=== PATIENT | male | born 1965 | race Caucasian/White ===

== ENCOUNTER 2018-09-01 10:23 | Emergency (ER) | payer OTHER ==
[~2018-09-01] VITALS: Ht 177.8 cm; Wt 86.8 kg
[2018-09-01 11:20] LABS: BASOPHILS # (AUTO) 0.02 x10^3/uL (0-0.1); BASOPHILS % (AUTO) 0 % (0-1); EOSINOPHILS # (AUTO) 0.23 x10^3/uL (0-0.4); EOSINOPHILS % (AUTO) 5 % (1-7); LYMPHOCYTES # (AUTO) 1.41 x10^3/uL (1-3.4); LYMPHOCYTES % (AUTO) 33 % (22-44); MD NO; MEAN CORPUSCULAR HEMOGLOBIN 32.5 pg (27.5-34.5); MEAN CORPUSCULAR VOLUME 93.1 fL (81-97); MEAN PLATELET VOLUME 7.8 fL (7.4-10.4); MONOCYTES # (AUTO) 0.29 x10^3/uL (0.2-0.8); MONOCYTES % (AUTO) 7 % (2-9); NEUTROPHILS # (AUTO) 2.35 x10^3/uL (1.8-6.8); NEUTROPHILS % (AUTO) 55 % (42-75); PLATELET COUNT 202 x10^3/uL (130-400); RED BLOOD COUNT 4.95 x10^6/uL (4.38-5.82); RED CELL DISTRIBUTION WIDTH 12.5 % (9.4-14.8)
[2018-09-01 11:24] LABS: ALANINE AMINOTRANSFERASE 57 U/L (12-78); ANION GAP 6 mmol/L (5-15); CALCIUM 8.5 mg/dL (8.5-10.1); CHLORIDE 105 mmol/L (98-107); CREATININE 0.98 mg/dL (0.7-1.3)
[2018-09-01 11:34] LABS: ALKALINE PHOSPHATASE 86 U/L (45-117); BILIRUBIN,TOTAL 0.6 mg/dL (0.2-1.0); TOTAL PROTEIN 7.3 g/dL (6.4-8.2)
[2018-09-01 12:03] VITALS: BP 154/103
== END 2018-09-01 12:12 | disposition home or self-care (01) ==
LOC: ED 11:08
DX: B34.9 Viral infection, unspecified (principal)
CPT/HCPCS: 36415; 71046; 80053; 84443; 85025; 99285

== ENCOUNTER 2019-12-26 18:40 | Emergency (ER) | payer OTHER ==
[~2019-12-26] VITALS: Ht 177.8 cm; Wt 80.0 kg
[2019-12-26] MEDS ORDERED: TAMS-11 PO (18:53)
--- NOTE | 2019-12-26 18:56 | NUR ---
REPORT TO LOBITO OTERO
--- NOTE | 2019-12-26 19:09 | NUR ---
THIS IS A 54Y M THAT COMES IN FOR GENITAL PAIN, WORSE WHEN URINATING. PT HAS BEEN SEEN FOR INABILITY TO URINIATE WAS GIVEN FLOMAX AND SINCE THEN PAIN HAS WORSENED. PT STS THIS PAIN IS DIFFERENT/ MORE. PT AT BEDSIDE
--- NOTE | 2019-12-26 20:02 | NUR ---
URINE SENT TO LAB
--- NOTE | 2019-12-26 20:02 | NUR ---
BLADDER SCAN COMPLETE 17ML FLUID IN BLADDER AT THIS TIME. PROVIDER TO BE UPDATED
[2019-12-26 20:03] LABS: BASOPHILS # (AUTO) 0.03 x10^3/uL (0-0.1); BASOPHILS % (AUTO) 1 % (0-1); EOSINOPHILS # (AUTO) 0.22 x10^3/uL (0-0.4); EOSINOPHILS % (AUTO) 4 % (1-7); LYMPHOCYTES # (AUTO) 1.43 x10^3/uL (1-3.4); LYMPHOCYTES % (AUTO) 23 % (22-44); MD NO; MEAN CORPUSCULAR HEMOGLOBIN 31.7 pg (27.5-34.5); MEAN CORPUSCULAR VOLUME 93.3 fL (81-97); MEAN PLATELET VOLUME 7.5 fL (7.4-10.4); MONOCYTES # (AUTO) 0.36 x10^3/uL (0.2-0.8); MONOCYTES % (AUTO) 6 % (2-9); NEUTROPHILS # (AUTO) 4.11 x10^3/uL (1.8-6.8); NEUTROPHILS % (AUTO) 67 % (42-75); PLATELET COUNT 201 x10^3/uL (130-400); RED BLOOD COUNT 4.67 x10^6/uL (4.38-5.82); RED CELL DISTRIBUTION WIDTH 12.4 % (9.4-14.8)
[2019-12-26 20:11] LABS: ANION GAP 4 mmol/L (5-15); CALCIUM 8.4 mg/dL (8.5-10.1); CHLORIDE 107 mmol/L (98-107); CREATININE 1.17 mg/dL (0.7-1.3)
[2019-12-26 20:12] LABS: CULTURE INDICATED? YES; MICROSCOPIC INDICATED
[2019-12-26] MEDS ORDERED: PHENAZOPYRIDINE 200 MG TABLET PO ONE (20:30)
[2019-12-26] MEDS ORDERED: PHENAZOPYRIDINE 200 MG TABLET ONE (20:47)
[2019-12-26 20:51] VITALS: BP 136/82
--- NOTE | 2019-12-26 21:09 | NUR ---
Patient/Caregiver given discharge instructions and they have confirmed that they understand the instructions. Patient ambulatory with steady gait.
== END 2019-12-26 21:10 | disposition home or self-care (01) ==
LOC: ED 20:26
DX: N48.89 Other specified disorders of penis (principal); N39.0 Urinary tract infection, site not specified; R31.9 Hematuria, unspecified; R11.0 Nausea
CPT/HCPCS: 36415; 80048; 81001; 85025; 87086; 87491; 87591; 99283